=== PATIENT | female | born 1995 | race Caucasian/White ===

== ENCOUNTER 2017-08-11 11:30 | Inpatient (IN) | payer OTHER ==
[~2017-08-11] VITALS: Ht 157.5 cm; Wt 94.8 kg
[2017-09-01] MEDS ORDERED: PRENATAL 19 TA1 EAC1 PO (15:48)
== END 2017-09-02 14:08 | disposition home or self-care (01) | DRG 775 ==
LOC: LDR 11:30 → OB/GYN 08-31 19:03
PROC: 10E0XZZ Delivery of Products of Conception, External Approach (ICD-10-PCS; principal; 2017-08-31)
PROC: 10907ZC Drainage of Amniotic Fluid, Therapeutic from Products of Conception, Via Natural or Artificial Opening (ICD-10-PCS; 2017-08-31)
PROC: 4A033R1 Measurement of Arterial Saturation, Peripheral, Percutaneous Approach (ICD-10-PCS; 2017-08-31)
PROC: 4A1HXCZ Monitoring of Products of Conception, Cardiac Rate, External Approach (ICD-10-PCS; 2017-08-31)
DX: O48.0 Post-term pregnancy (principal); Z3A.40 40 weeks gestation of pregnancy; Z37.0 Single live birth

== ENCOUNTER 2018-08-31 18:54 | Inpatient (IN) | payer OTHER ==
[~2018-08-31] VITALS: Ht 157.5 cm; Wt 94.8 kg
[~2018-08-31 18:54] MED LIST: PRENATAL 19 TA1 EAC1 PO
== END 2018-09-02 12:26 | disposition home or self-care (01) | DRG 807 ==
LOC: LDR 18:54 → OB/GYN 18:54
PROVIDERS: ADMIT Specialist
PROC: 10E0XZZ Delivery of Products of Conception, External Approach (ICD-10-PCS; principal; 2018-08-31)
PROC: 4A1HXCZ Monitoring of Products of Conception, Cardiac Rate, External Approach (ICD-10-PCS; 2018-08-31)
DX: O80 Encounter for full-term uncomplicated delivery (principal); Z37.0 Single live birth; Z3A.39 39 weeks gestation of pregnancy